=== PATIENT | male | born 1985 | race Caucasian/White ===

== ENCOUNTER 2023-10-11 18:08 | Emergency (ER) | payer OTHER, SELFPAY ==
--- NOTE | 2023-10-11 18:10 | ED.GENADULT ---
HPI - General Adult General Chief complaint: Wound/Laceration Stated complaint: lip lac Time Seen by Provider: 10/11/23 18:49 Source: patient Mode of arrival: ambulatory Limitations: no limitations History of Present Illness HPI narrative: Patient comes to the emergency room complaining of a laceration to the lower lip. Patient states that he was playing with his dog, the dog accidentally hit the patient in the lower lip with its head. Patient did not sustain any other injury, did not lose consciousness. Patient on blood thinners. Related Data Previous Rx's Medication Instructions Recorded erythromycin 5 mg/gram (0.5 %) eye 1 appl ophthalmic (eye) QID 7 days 01/06/21 ointment #3.5 grams Allergies Allergy/AdvReac Type Severity Reaction Status Date / Time penicillamine Allergy Unknown Verified 10/15/19 00:00 Review of Systems Review of Systems: Constitutional : No Weight loss, No Fever, No Chills, No Night Sweats, No Fatigue, No Malaise ENT/Mouth : No Hearing loss, No Ear Pain, No Nasal Congestion, No Sinus Pain, No Hoarseness, No sore throat, No Rhinorrhea, No Swallowing Difficulty Eyes: No Eye Pain, No Swelling, No Redness, No Foreign Body, No Discharge, No Vision Changes Cardiovascular : No Chest Pain, No SOB, No Dyspnea on Exertion, No Orthopnea, No Edema, No Palpitations Respiratory : No Cough, No Sputum, No Wheezing, No Smoke Exposure, No Dyspnea Gastrointestinal : No Nausea, No Vomiting, No Diarrhea, No Constipation, No abdominal Pain, No Hematochezia, No Melena Genitourinary : no irregular bleeding, No Dysuria, No Urinary Frequency, No Hematuria, No Urinary Incontinence, No Urgency, No Flank Pain, No Urinary Flow Changes, No Hesitancy Musculoskeletal : No joint pain, No Myalgias, No Joint Swelling Skin : Laceration to the lower lip No Skin Lesions, No rash Neuro : No Weakness, No Numbness, No Paresthesias, No Loss of Consciousness, No Dizziness, No Headache Psych : No Anxiety/Panic, No Depression, No SI/HI/AH/VH, No Social Issues, Heme/Lymph: No Bruising, No Bleeding,No Lymphadenopathy Endocrine : No Polyuria, No Polydipsia, No Temperature Intolerance PMFSH Social History Alcohol intake: current Alcohol intake frequency: holidays/special occasions only Smoked in Last 30 Days: No Use of substances other than those prescribed or required for medical reasons: Yes Substance Use Type: Marijuana Substance Use Frequency: Chronic Longstanding Advance Directives: No Physical Exam ED Vital Signs: Vital Signs - 24 hr 10/11/23 18:11 Temperature 98.2 F Pulse Rate 74 Respiratory Rate 20 Blood Pressure 140/83 H Pulse Oximetry 100 Oxygen Delivery Method Room Air BMI result Body Mass Index 21.3 Const Other: Appearance: Alert. Oriented X3. No acute distress. Eyes: Pupils equal, round and reactive to light. ENT: Pharynx normal. Neck: Normal inspection. Neck supple. No lymph nodes noted. No crepitus CVS: Normal heart rate and rhythm. Pulses normal. Normal S1 and S2 Respiratory: No respiratory distress. Breath sounds normal. No Wheezing. No rales Abdomen: Soft and nontender. No rigidity. No distention. Skin: Skin warm and dry. Normal skin color. Normal skin turgor. Patient has a v-shaped 1 cm laceration to the lower lip, barely touching the vermilion border Extremities: No lower extremity edema. No Lacerations. No Rash Neuro: Oriented X 3. No motor deficit. No sensory deficit. Moving all extremities. No slurred speech. CN 2 through 12 grossly intact Psych: calm, cooperative, normal affect Course Course Course Narrative: This is a rapid medical exam: Additional HPI, ROS, PE not included below will be deferred to primary provider. Patient is a 38-year-old male presenting to the ED with complaint of lower lip laceration. He states he was leaning forward to pet his dog and the dog jumped up at the same time causing it's head to hit patient in the lip. Laceration is approx 1 cm, not actively bleeding, does not appear to cross the vermilion border. Medications Administered Discontinued Medications Generic Name Dose Route Start Last Admin Trade Name Freq PRN Reason Stop Dose Admin Diphtheria/Tetanus/Acell Pertussis 0.5 ml 10/11/23 19:01 10/11/23 19:04 Diphth,Pertus(Acell),Tet Adult 0.5 Ml Syringe IM 10/11/23 19:02 0.5 ml .ONCE ONE Administration Lidocaine HCl 20 ml 10/11/23 18:56 10/11/23 19:02 Lidocaine Hcl 1 % 20 Ml Vial SUBCUT 10/11/23 18:57 Not Given ONCE ONE Procedures Laceration Laceration 1: Site: lip Size (cm): 1 Description: stellate, irregular and involves gale border Depth: simple, single layer Local Anesthetic: lidocaine 1% Amount of anesthesia used (mL): 1.5 Pre-repair: wound explored and irrigated extensively Skin layer closed with: nylon Size (cm): 6-0 Number of sutures: 5 Technique: simple, interrupted Medical Decision Making Medical Decision Making MDM Narrative: -patient is not sure about if he has an up-to-date immunization for Tdap. Patient was given 1 dose here in the ED. -patient's laceration of the lower lip does not go through the lip. -patient received 5 stitches, tolerated well the procedure. Discharge Plan Discharge Clinical Impression: Laceration of lip Patient Disposition: Home, Self-Care Instructions: Laceration (ED) Additional Instructions: Your sutures need to be removed in 7-10 days. If you see any signs of infection such as pus drainage, fever chills, or pain out of proportion, please return to the emergency room. Please follow-up with your primary care physician tomorrow. If you have any worsening or new symptoms, please return to the emergency room or call 911 Prescriptions: No Action erythromycin 5 mg/gram (0.5 %) ointment 1 appl ophthalmic (eye) QID 7 Days Qty: 3.5 0RF
[2023-10-11 18:11] VITALS: BP 140/83; PULSE 74; RESP 20; TEMP 36.8; O2SAT 100; BMI 21.3
[2023-10-11] MEDS: Diphth,Pertus(ACell),Tet Adult 0.5 ML SYRINGE IM (19:04)
== END 2023-10-11 19:32 | disposition home or self-care (01) ==
PROVIDERS: Emergency Provider Emergency Medicine; PCP Family Medicine
DX: S01.511A Laceration without foreign body of lip, initial encounter (principal); W54.1XXA Struck by dog, initial encounter; Y93.89 Activity, other specified; Y92.9 Unspecified place or not applicable; Y99.9 Unspecified external cause status
CPT/HCPCS: 12011; 90471; 90715; 99284